=== PATIENT | female | born 2005 | race Caucasian/White ===

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

== ENCOUNTER 2023-07-20 20:03 | Emergency (ER) | payer BC ==
--- OUTSIDE RECORDS SUMMARY | 2023-07-20 20:06 | XMS REPORT | Continuity of Care Document ---
:2005 Author Organization [facility] t Address [address] [address] [place] [address] Care Team Providers Name Role Phone Varun Tobias MD Primary Care Physician Christy Lundberg MA Attending Clinician Unavailable Mamie Ponce MD Attending Clinician CELESTE LOVELL Attending Clinician Unavailable NARINDER MENCHACA Attending Clinician Unavailable DENISHA CLEMENTS Attending Clinician Unavailable Lab, [facility] F[facility] Pob I Attending Clinician Unavailable Jacquelyn Bar Attending Clinician JACQUELYN ANGELES Attending Clinician Unavailable Doctor Unassigned, [facility] Attending Clinician Unavailable Andrew Martin MD Attending Clinician Payers Payer Name Policy Type Policy Number Effective Date Expiration Date S ource Problems Condition Condition Condition Status Onset Resolution Last Treating Co mments Source Name Details Category Date Date Treatment Clinician Date JOHN JOHN 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) 00 Me dical [facility] Allergies, Adverse Reactions, Alerts Allergy Allergy Status Severity Reaction(s) Onset Inactive Treating Comm ents Source Name Type Date Date Clinician Amoxicil Propensi Active Itching 2017-09 Metho di malcom ty to 0-12 st adverse 00:00: Hospita reaction 00 l s to drug Amoxicil Propensi Active Itching 2017-09 Unive rs malcom ty to 0-12 ity of adverse 00:00: [place] reaction 00 Medical s Branch AMOXICIL DRUG Active ITCHING 2017-09 Univers MALCOM INGREDI 0-12 ity of 00:00: [address] Family History Family Member Diagnosis Comments Start Date Stop Date Source Natural mother Hypertension [facility] Natural mother Thrombocytopenia [facility] Paternal grandfather Hypertension [facility] Paternal grandmother Hypertension [facility] Natural sister Cancer [facility] Natural father Gout [facility] Natural father Hypertension [facility] Natural father Sleep apnea [facility] Maternal grandfather Hypertension [facility] Maternal grandmother Hypertension [facility] Social History Social Habit Start Date Stop Date Quantity Comments Source Sexual orientation [facility] Exposure to Yes [facility] of SARS-CoV-2 (event) [facility] Alcohol intake 2021-12-16 2021-12-16 Current [facility] 00:00:00 00:00:00 non-drinker of Hospital alcohol (finding) History of Social 2021-12-16 2021-12-[address] function 00:00:00 00:00:00 Hospital Tobacco use and 2019-01-09 2019-01-09 Smokeless [facility] exposure 00:00:00 00:00:00 tobacco non-user Hospital Sex Assigned At [birth year] [facility] 00:00:00 00:00:00 Hospital Smoking Status Start Date Stop Date Source Never smoked tobacco [facility] Medications Ordered Filled Start Stop Current Ordering Indication Dosage Frequency Signature Comments Components Source Medication Medication Date Date Medication? Clinician (SIG) Name Name acetaminoph Yes 650mg Take 650 M ethodi en ER 3-[address] (Tylenol 14:03: mouth. Hospita Arthritis 02 Take two l Pain) 650 tablets, MG 8 hr twice tablet daily for wrist pain. fexofenadin Yes 60mg Q.5D Take 60 mg Methodi e (ESTELLA) 3-[address] 60 MG 14:01: (two) Hospita tablet 48 times a l day. cholecalcif Yes 125ug QD Take 125 M ethodi yin, 3-[address] vitamin D3, 14:01: mouth Hospi ta (Vitamin 48 daily. l D3) 125 mcg (5,000 unit) tablet fexofenadin Yes Take by Uni vers e HCl 6-10 mouth. ity of (ESTELLA 21:02: [place] ORAL) [address] [place] [address] fexofenadin Yes Take by Uni vers e HCl 6-10 mouth. ity of (ESTELLA 21:02: [place] ORAL) [facility] fexofenadin Yes Take by Uni vers e HCl 6-10 mouth. ity of (ESTELLA 21:02: [place] ORAL) 04 [facility] acetaminoph Yes Take by Un lizett en (TYLENOL 5-17 mouth. ity of ORAL) 18:51: [address] acetaminoph Yes Take by Uni vers en (TYLENOL 5-17 mouth. ity of ORAL) 18:51: [address] acetaminoph Yes Take by Uni vers en (TYLENOL 5-17 mouth. ity of ORAL) 18:51: [address] Procedures Procedure Date / Time Performing Clinician Source Performed MEDICATION CORRESPONDENCE 2020-04-12 05:01:00 Doctor Unassigned, [facility] Plan of Care Planned Activity Planned Date Details Comments Source Future Scheduled 2023-07-12 HEPATITIS B VACCINES Met [facility] Test 16:03:19 (1 of 3 - 3-dose series) [code = HEPATITIS B VACCINES (1 of 3 - 3-dose series)] Future Scheduled 2023-07-12 Screening for [facility] Test 16:03:19 Chlamydia trachomatis (procedure) [code = 690648541] Future Scheduled 2023-07-12 Hepatitis C screening [facility] Test 16:03:19 (procedure) [code = 298997395] Future Scheduled 2023-07-12 COVID-19 VACCINE (3 - [facility] Test 16:03:19 ) [code = COVID-19 VACCINE ( - season)] Future Scheduled 2023-07-12 INFLUENZA VACCINE Method [facility] Test 16:03:19 (#1) [code = INFLUENZA VACCINE (#1)] Encounters Start End Encounter Admission Attending Care Care Encounter Source Date/Time Date/Time Type Type Clinicians Facility Department ID 2023-06-01 2023-06-01 Riley [id number] Method[facility] 00:00:00 00:00:[id number] 3.430.2.7 Hospit a .3.326254 l .8 2023-05-31 2023-05-31 Telephone Rosario, 1.2.840.1 [id number] [facility] 00:00:00 00:00:00 Mamie [id number] 446 3.430.2.7 Hospit a .3.410922 l .8 2022-01-03 2022-01-03 Outpatient ROSARIO, [facility] [id number] [place] 00:00:00 00:00:00 MAMIE [address] 2021-12-28 2021-12-28 Outpatient CELESTE LOVELL [facility] [id number] [place] 00:00:00 00:00:[address] 2021-12-16 2021-12-16 Outpatient CELESTE LOVELL [facility] [id number] [place] 00:00:00 00:00:[address] 2021-12-07 2021-12-07 Outpatient ROSARIO [facility] [id number] [place] 00:00:00 00:00:00 MAMIE [address] 2021-12-06 2021-12-06 Outpatient NIKOLAI, [facility] [id number] [address] [place] 00:00:00 00:00:00 NARINDER [address] 2021-12-01 2021-12-01 Outpatient GANTI, [facility] [id number] [address] [place] 00:00:00 00:00:00 NARINDER [address] 2021-11-26 2021-11-26 Emergency CLEMENTS, [facility] [id number] [address] [place] 00:00:00 00:00:00 DENISHA [address] 2021-11-24 2021-11-24 Outpatient ROSARIO, [facility] [id number] [place] 00:00:00 00:00:00 MAMIE [address] 2021-11-24 2021-11-24 Outpatient RODONI, [facility] [id number] [address] [place] 00:00:00 00:00:00 MAMIE [address] 2021-11-11 2021-11-11 Outpatient RODONI, [facility] [id number] [place] 00:00:00 00:00:00 MAMIE [address] 2021-11-09 2021-11-09 Outpatient NIKOLAI, [facility] [id number] [place] 00:00:00 00:00:00 NARINDER [address] 2021-11-01 2021-11-01 Outpatient NIKOLAI, [facility] [id number] 0[address] [place] 00:00:00 00:00:00 NARINDER 466 [address] 2020-09-10 2020-09-10 Laboratory Lab, Adc Fam Pob I [facility] [id number]. [id number] Univers 15:10:42 15:30:42 Only Jacquelyn Angeles [facility] [id number] ity of [place] 4.2.7.2.686 Sudheer as Professio [phone] [address] Office [facility] 2020-09-10 2020-09-10 Outpatient Ward ANGELES [facility] [id number] Univers 15:00:00 15:00:00 JACQUELYN echols [facility] 2020-04-12 2020-04-12 Orders Doctor SHAMAR [id number] 00:00:00 00:00:00 Only Unassigned, YAKOV 350.1.13.10 [facility] 4.2.7.2.686 [id number] [facility] 2020-04-12 2020-04-12 Orders Doctor SHAMAR [id number] Univers 00:00:00 00:00:00 Only Unassigned, YAKOV [id number] ity of [facility] 4.2.7.2.686 Sudheer as [id number] [address] 2020-04-09 2020-04-09 Telephone Andrew Martin [facility] [id number] 00:00:00 00:00:00 [place] [id number] Pediatric 4.2.7.2.686 Clinic [id number] [facility] 2020-04-09 2020-04-09 Telephone Andrew Martin [facility] [id number] Univers 00:00:00 00:00:00 [place] [id number] it y of [facility] 4.2.7.2.686 [place] [facility] [id number] [facility] [address] Branch Results This patient has no known results.
[2023-07-20 21:50] LABS: Absolute Lymphocytes (CBC) 2.8 K/uL (0.7-4.9); Hematocrit 41.6 % (36.0-45.0); Lymphocytes % 21.3 % (15.3-44.8); MCV 85.8 fL (80-100); MPV 9.1 fL (7.6-11.3); Platelets 254 thou/uL (152-406); RBC Red Blood Cell Count 4.84 M/uL (3.86-4.86)
[2023-07-20] MEDS ORDERED: NA CHLORIDE 0.9% 1,000 ML ONE (22:02)
[2023-07-20] MEDS ORDERED: KETOROLAC 30 MG/ML INJ ONE (22:02)
[2023-07-20] MEDS ORDERED: ONDANSETRON 4 MG/2 ML VIAL ONE (22:02)
[2023-07-20] MEDS ORDERED: FAMOTIDINE 20 MG/2 ML VIAL IV ONE (22:02)
[2023-07-20 22:12] LABS: Albumin 4.2 g/dL (3.4-5.0); Bilirubin Total 0.6 mg/dL (0.2-1.0); Potassium 4.1 mEq/L (3.5-5.1); Protein, Total 7.8 g/dL (6.4-8.2)
[2023-07-20 23:46] LABS: Specific Gravity 1.028 (1.005-1.030)
[2023-07-21 00:07] LABS: Specific Gravity 1.028 (1.005-1.030); Urine Bacteria None Seen /HPF (<20); Urine Bilirubin NEGATIVE (Negative); Urine Blood Negative (Negative); Urine Clarity Clear (Clear); Urine Color Yellow (Yellow); Urine Glucose NEGATIVE (Negative); Urine Mucus Slight /HPF (None Seen); Urine Protein 2+ (Negative); Urine RBC <5 /HPF (None Seen); Urine Urobilinogen 1+ (Normal)
--- NOTE | 2023-07-21 01:13 | ER ---
Nurse's Notes [facility] Name: Carolyn Cuevas Age: 17 yrs Sex: Female : 2005 Arrival Date: 07/20/2023 Time: 20:03 Bed DIS2 Private MD: Diagnosis: Nausea with vomiting, unspecified;Diarrhea, unspecified Presentation: 07/20 21:06 Chief complaint: Patient states: Started feeling sick Sunday morning Sunday I felt vc1 fine then yesterday I started feeling sick again. I went to urgent care and they told me to come here because it could be appendicitis. Coronavirus screen: Vaccine status: Patient reports receiving the 2nd dose of the covid vaccine. Pfizere Client denies travel out of the [place] in the last 14 days. At this time, the client does not indicate any symptoms associated with coronavirus-19. Ebola Screen: Patient negative for fever greater than or equal to 101.5 degrees Fahrenheit, and additional compatible Ebola Virus Disease symptoms Patient denies exposure to infectious person. Patient denies travel to an Ebola-affected area in the 21 days before illness onset. No symptoms or risks identified at this time. Initial Sepsis Screen: Does the patient meet any 2 criteria? No. Patient's initial sepsis screen is negative. Does the patient have a suspected source of infection? No. Patient's initial sepsis screen is negative. Risk Assessment: Do you want to hurt yourself or someone else? Patient reports no desire to harm self or others. Onset of symptoms was July 17, 2023. 21:06 Method Of Arrival: Ambulatory vc1 21:06 Acuity: JACOBY 3 vc1 Triage Assessment: 21:10 General: Appears in no apparent distress. uncomfortable, ill, Behavior is cooperative, vc1 appropriate for age. Pain: Complains of pain in abdomen Pain does not radiate. Pain currently is 8 out of 10 on a pain scale. GI: Reports lower abdominal pain, upper abdominal pain, diarrhea, intolerance of fluids, intolerance of food, nausea, vomiting. 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 - Social history:: Smoking status: Patient denies any tobacco usage or history of. Screenin:57 [facility] ED Fall Risk Assessment (Adult) History of falling in the last 3 months, vc1 including since admission No falls in past 3 months (0 pts) Confusion or Disorientation No (0 pts) Intoxicated or Sedated No (0 pts) Impaired Gait No (0 pts) Mobility Assist Device Used No (0 pt) Altered Elimination No (0 pt) Score/Fall Risk Level 0 - 2 = Low Risk Oriented to surroundings, Maintained a safe environment, Educated pt \T\ family on fall prevention, incl call for assistance when getting out of bed. Abuse screen: Denies threats or abuse. Nutritional screening: No deficits noted. Tuberculosis screening: No symptoms or risk factors identified. Assessment: 07/21 01:50 Reassessment: Patient and/or family updated on plan of care and expected duration. Pain ha1 level reassessed. Patient is alert, oriented x 3, equal unlabored respirations, skin warm/dry/pink. Patient denies pain at this time. Patient states feeling better. Patient states symptoms have improved. Vital Signs: 07/20 21:06 BP 147 / 85; Pulse 87; Resp 18; Temp 98.8; Pulse Ox 99% ; Weight 65.77 kg; Height 5 ft. vc1 3 in. ; Pain 05/20; 23:47 BP 127 / 66; Pulse 99; Resp 22; Temp 98.8(O); Pulse Ox 98% ; kmf 07/21 01:00 BP 122 / 65; Pulse 95; Resp 18 S; Pulse Ox 98% on R/A; ha1 07/20 21:06 Body Mass Index 25.69 (65.77 kg, 160.02 cm) - Percentile 82.2 % vc1 07/20 21:06 Pain Scale: Adult vc1 ED Course: 07/20 20:07 Patient arrived in ED. es 21:08 Triage completed. vc1 21:08 Arm band placed on left wrist. vc1 21:15 Wai Garcia PA is PHCP. cp 21:15 Bryson Mancini is Attending Physician. cp 21:45 Inserted saline lock: 20 gauge in left antecubital area, using aseptic technique. Blood as6 collected. 22:22 Radiology exam delayed due to test not completed at this time. 22:57 Sary Guerrero, RN is Primary Nurse. vc1 23:00 Patient has correct armband on for positive identification. Placed in gown. Bed in low vc1 position. 23:29 Test, Urine Sent. 23:29 Urinalysis w/ reflexes Sent. 07/21 00:16 CT Abd/Pelvis - IV Contrast Only In Process Unspecified. EDMS 01:50 No provider procedures requiring assistance completed. IV discontinued, intact, ha1 bleeding controlled, No redness/swelling at site. Pressure dressing applied. 01:51 Provided Education on: medication administration . ha1 Administered Medications: 07/20 21:54 Drug: NS 0.9% IV 1000 ml IV at 1 bolus Per protocol; 1000 mL bolus Route: IV; Rate: 1 as6 bolus; Site: left antecubital; 21:54 Drug: Famotidine IVP 20 mg IVP once; dilute with 10 mL 0.9% NaCl; give over 2 minutes as6 Route: IVP; Site: left antecubital; 21:54 Drug: TORadol - Ketorolac IVP 15 mg IVP once Route: IVP; Site: left antecubital; as6 21:54 Drug: Ondansetron IVP 4 mg IVP once; over 2 minutes Route: IVP; Site: left antecubital; as6 07/21 01:35 Drug: Dicyclomine PO 20 mg PO once Route: PO; vc1 01:49 Follow up: Response: No adverse reaction ha1 Medication: 07/20 23:00 VIS not applicable for this client. vc1 Outcome: 07/21 01:13 Discharge ordered by MD. cp 01:50 Discharged to home ambulatory, with family, [facility] 01:50 Condition: stable 01:50 Discharge instructions given to patient, family, Instructed on discharge instructions, follow up and referral plans. medication usage, Demonstrated understanding of instructions, follow-up care, medications, Prescriptions given X 2, 01:53 Patient left the ED. [facility] Signatures: Dispatcher [employer] EDMS Veronica Graff Shannon sw Page, Corey, PA PA cp Marsh, Wendy Slawson, Ambrose, RN RN as6 Sary Guerrero RN RN vc1 Effie Martinez RN RN ha1 Ledy Garduno [facility] Corrections: (The following items were deleted from the chart) 07/20 21:10 21:09 PSHx: None; vc1 vc1
--- NOTE | 2023-07-21 01:13 | EDPHYS ---
Physician Documentation [facility] Name: Carolyn Cuevas Age: 17 yrs Sex: Female : 2005 Arrival Date: 07/20/2023 Time: 20:03 Bed DIS2 Private MD: ED Physician Bryson Mancini HPI: 07/20 21:20 This 17 yrs old Female presents to ER via Ambulatory with complaints of Abdominal Pain, cp Vomiting/Diarrhea. 21:20 The patient presents with abdominal pain in the lower abdomen. cp 21:20 Onset: The symptoms/episode began/occurred this past Sunday, symptoms improved cp Sunday but returned yesterday. Seen at urgent care and referred to ED due to concern for appendicitis. Patient reports vomiting and diarrhea. Severity of pain: in the emergency department the pain is unchanged despite home interventions. 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 - Social history:: Smoking status: Patient denies any tobacco usage or history of. ROS: 21:25 Constitutional: Negative for chills, fever, cp 21:25 Eyes: Negative for injury, pain, redness, and discharge, cp 21:25 ENT: Negative for drainage from ear(s), ear pain, sore throat, difficulty swallowing, difficulty handling secretions, 21:25 Cardiovascular: Negative for chest pain, palpitations, 21:25 Respiratory: Negative for cough, shortness of breath, wheezing, 21:25 Abdomen/GI: Positive for abdominal pain, vomiting, diarrhea, of the right lower quadrant and left lower quadrant, Negative for constipation, 21:25 : Negative for urinary symptoms, 21:25 Neuro: Negative for altered mental status, headache, 21:25 All other systems are negative, Exam: 21:30 Head/Face: Normocephalic, atraumatic. cp 21:30 Constitutional: The patient appears in no acute distress, alert, awake, non-toxic, well developed, well nourished, uncomfortable, 21:30 Eyes: Periorbital structures: appear normal, Conjunctiva: normal, no exudate, no cp injection, Sclera: no appreciated abnormality, Lids and lashes: appear normal, bilaterally, 21:30 ENT: External ear(s): are unremarkable, Nose: is normal, Mouth: Lips: moist, Oral mucosa: pink and intact, moist, Posterior pharynx: is normal, airway is patent, no erythema, no exudate, 21:30 Chest/axilla: Inspection: normal, 21:30 Cardiovascular: Rate: normal, Rhythm: regular, 21:30 Respiratory: the patient does not display signs of respiratory distress, Respirations: normal, no use of accessory muscles, no retractions, labored breathing, is not present, Breath sounds: are clear throughout, no decreased breath sounds, no stridor, no wheezing, 21:30 Abdomen/GI: Inspection: abdomen appears normal, Bowel sounds: active, all quadrants, Palpation: soft, in all quadrants, mild abdominal tenderness, in the right lower quadrant, rebound tenderness, is not appreciated, involuntary guarding, is not appreciated, 21:30 Back: pain, is absent, ROM is normal, 21:30 Neuro: Orientation: to person, place \T\ time. Mentation: is normal, Motor: moves all fours, strength is normal, Sensation: is normal, Vital Signs: 21:06 BP 147 / 85; Pulse 87; Resp 18; Temp 98.8; Pulse Ox 99% ; Weight 65.77 kg; Height 5 ft. vc1 3 in. ; Pain 9/10; 23:47 BP 127 / 66; Pulse 99; Resp 22; Temp 98.8(O); Pulse Ox 98% ; f 07/21 01:00 BP 122 / 65; Pulse 95; Resp 18 S; Pulse Ox 98% on R/A; ha1 07/20 21:06 Body Mass Index 25.69 (65.77 kg, 160.02 cm) - Percentile 82.2 % [facility] 07/20 21:06 Pain Scale: Adult [facility] MDM: 07/20 21:15 Patient medically screened. cp 22:00 Differential diagnosis: appendicitis, cholecystitis, Cholelithiasis, gastritis, cp non-specific abd pain, Ovarian Torsion, Pelvic Inflammatory Disease, Ureterolithiasis, urinary tract infection. 07/21 01:12 Data reviewed: vital signs, nurses notes, lab test result(s), radiologic studies, CT cp scan. 01:12 I considered the following discharge prescriptions or medication management in the emergency department Medications were administered in the Emergency Department. See MAR. Counseling: I had a detailed discussion with the patient and/or guardian regarding the historical points, exam findings, and any diagnostic results supporting the discharge/admit diagnosis, lab results, radiology results, to return to the emergency department if symptoms worsen or persist or if there are any questions or concerns that arise at home. Response to treatment: the patient's symptoms have markedly improved after treatment, and as a result, I will discharge patient. Special discussion: Based on the patient's Hx, exam, and Dx evaluation, there is no indication for emergent surgery or inpatient Tx. It is understood by the patient/guardian that if the Sx's persist or worsen they need to return immediately for re-evaluation. 07/20 21:16 Order name: CBC with Diff; Complete Time: 23:32 07/21 00:21 Interpretation: Normal except: WBC 13.00; NEUT A 9.4. 07/20 21:16 Order name: CMP; Complete Time: 23:32 07/20 21:16 Order name: Lipase; Complete Time: 23:32 07/20 21:16 Order name: Test, Urine; Complete Time: 00:21 07/21 00:21 Interpretation: Reviewed. 07/20 21:16 Order name: Urinalysis w/ reflexes; Complete Time: 00:21 07/21 00:21 Interpretation: Normal except: UKET 4+ (Over); UPROT 2+; UUROB 1+. 07/20 21:16 Order name: CT Abd/Pelvis - IV Contrast Only 07/20 21:16 Order name: IV Saline Lock; Complete Time: 21:45 07/20 21:16 Order name: Labs collected and sent; Complete Time: 21:45 07/21 01:08 Order name: PO challenge; Complete Time: 01:49 cp Administered Medications: 07/20 21:54 Drug: NS 0.9% IV 1000 ml IV at 1 bolus Per protocol; 1000 mL bolus Route: IV; Rate: 1 as6 bolus; Site: left antecubital; 21:54 Drug: Famotidine IVP 20 mg IVP once; dilute with 10 mL 0.9% NaCl; give over 2 minutes as6 Route: IVP; Site: left antecubital; 21:54 Drug: TORadol - Ketorolac IVP 15 mg IVP once Route: IVP; Site: left antecubital; as6 21:54 Drug: Ondansetron IVP 4 mg IVP once; over 2 minutes Route: IVP; Site: left antecubital; as6 07/21 01:35 Drug: Dicyclomine PO 20 mg PO once Route: PO; vc1 01:49 Follow up: Response: No adverse reaction ha1 Disposition Summary: 07/21/23 01:13 Discharge Ordered Notes: Location: Home cp Problem: new cp Symptoms: have improved cp Condition: Stable cp Diagnosis - Nausea with vomiting, unspecified cp - Diarrhea, unspecified cp Followup: cp - With: Emergency Department - When: As needed - Reason: Worsening of condition Discharge Instructions: - Discharge Summary Sheet cp - Food Choices to Help Relieve Diarrhea, Adult cp - Diarrhea, Adult cp - Nausea and Vomiting, Adult cp Forms: - Medication Reconciliation Form cp - Thank You Letter cp - Antibiotic Education cp - Prescription Opioid Use cp - Patient Portal Instructions cp - Leadership Thank You Letter cp Prescriptions: - Zofran 4 mg Oral Tablet - take 1 tablet ORAL route every 12 hours As needed; 20 tablet; Refills: 0, cp Product Selection Permitted - dicyclomine 20 mg Oral tablet - take 1 tablet ORAL route 4 times per day; 20 tablet; Refills: 0, Product cp Selection Permitted Signatures: Dispatcher [employer] EDDC Wai Garcia PA PA cp Ambrose Hutton RN RN as6 Sary Guerrero RN RN vc1 Effie Martinez RN ha1 Corrections: (The following items were deleted from the chart) 07/20 21: 21:09 PSHx: None; vc1 vc1 07/21 15:22 07/20 21:20 Constitutional: The patient appears in no acute distress, alert, awake, cp non-toxic, well developed, well nourished, uncomfortable, cp 07/21 15:22 07/20 21:20 Head/Face: Normocephalic, atraumatic. cp cp
[2023-07-21] MEDS ORDERED: DICYCLOMINE HCL 10 MG CAP ONE (01:45)
[2023-07-21 02:29] VITALS: TEMP 98.8
[2023-07-21 02:35] VITALS: O2SAT 98
[2023-07-21 02:40] VITALS: BP 122/65
--- NOTE | 2023-07-21 16:52 | RAD REPORT ---
EXAM DESCRIPTION: CT - Abdomen Pelvis W Contrast - 07/21/2023 6:07 am CLINICAL HISTORY: 17 years Female lower abdomen pain TECHNIQUE: Contiguous axial images obtained through the abdomen and pelvis following intravenous con trast administration. Coronal and sagittal reformatted images provided. This CT exam was performed according to our departmental dose-optimization program, which includes on e or more of the following dose reduction techniques: automated exposure control, adjustment of the m A and/or kV according to patient size, and/or use of iterative reconstruction technique. COMPARISON: No prior exams provided for comparison. FINDINGS: There is no bowel inflammation, obstruction, free intraperitoneal air, or abdominal ascite s. 2.3 cm left ovarian cyst is benign in appearance and does not require follow-up. There is free fluid in the cul-de-sac. Normal uterus and right ovary The lung bases, liver, biliary tree, gallbladder, pancreas, spleen, adrenal glands, kidneys, urinary bladder, and osseous structures are unremarkable. IMPRESSION: Physiologic--appearing left ovarian cyst and free fluid in the cul-de-sac. No acute find ings in the abdomen or pelvis. Electronically signed by: Bonnie Brennan MD 07/21/2023 12:36 AM [employer]ERN[employer] FLOOR SUPERVISOR Due to temporary technical issues with the PACS/Fluency reporting system, reports are being signed by the in house radiologists without review as a courtesy to insure prompt reporting. The interpreting radiologist is fully responsible for the content of the report.
== END 2023-07-21 01:53 | disposition home or self-care (01) ==
LOC: ER 20:03
DX: R11.2 Nausea with vomiting, unspecified (principal); R19.7 Diarrhea, unspecified; R10.30 Lower abdominal pain, unspecified; Z88.0 Allergy status to penicillin
CPT/HCPCS: 85025; 81001; 36415; 81025; 83690; 80053; 74177; 96375; 96374; 99284; Q9967; J2405; J7030

== ENCOUNTER 2023-07-21 14:09 | Emergency (ER) | payer BC ==
--- OUTSIDE RECORDS SUMMARY | 2023-07-21 14:15 | XMS REPORT | Continuity of Care Document ---
:2005 Author Organization [facility] t Address [address] [place] [address] Care Team Providers Name Role Phone Varun Tobias MD Primary Care Physician Christy Lundberg MA Attending Clinician Unavailable Mamie Ponce MD Attending Clinician CELESTE LOVELL Attending Clinician Unavailable NARINDER MENCHACA Attending Clinician Unavailable DENISHA CLEMENTS Attending Clinician Unavailable Lab, Adc Fam Pob I Attending Clinician Unavailable Jacquelyn Bar Attending Clinician JACQUELYN ANGELES Attending Clinician Unavailable Doctor Unassigned, [place] Attending Clinician Unavailable Andrew Martin MD Attending [...] Univers MALCOM INGREDI 0-12 ity of 00:00: [address] Family History Family Member Diagnosis Comments Start Date Stop Date Source Natural mother Hypertension [facility] Natural mother Thrombocytopenia [facility] Paternal grandfather Hypertension [facility] Paternal grandmother Hypertension [facility] Natural sister Cancer [facility] Natural father Gout [facility] Natural father Hypertension [facility] Natural father Sleep apnea [facility] Maternal grandfather Hypertension [facility] Maternal grandmother Hypertension [facility] Social History Social Habit Start Date Stop Date Quantity Comments Source [facility] orientation [facility] Exposure to Yes [facility] of SARS-CoV-2 (event) [facility] Alcohol intake 2021-12-16 2021-12-16 Current [facility] 00:00:00 00:00:00 non-drinker of Hospital alcohol (finding) History of Social 2021-12-16 2021-12-[address] function 00:00:00 00:00:00 Hospital Tobacco use and 2019-01-09 2019-01-09 Smokeless [facility] exposure 00:00:00 00:00:00 tobacco non-user Hospital Sex Assigned At [birth year] [facility] 00:00:00 00:00:00 Hospital Smoking Status Start Date Stop Date Source Never smoked tobacco [facility] Medications Ordered Filled Start Stop Current Ordering Indication Dosage Frequency Signature Comments Components Source Medication Medication Date Date Medication? Clinician (SIG) Name Name acetaminoph Yes 650mg Take 650 M ethodi en ER 3-[address] (Tylenol 14:03: mouth. [facility]osp[facility] Arthritis 02 Take two l Pain) 650 tablets, MG 8 hr twice tablet daily for wrist pain. acetaminoph Yes 650mg Take 650 M ethodi [...] 125 mcg (5,000 unit) tablet fexofenadin Yes 60mg Q.5D Take 60 mg [...] HCl 6-10 mouth. ity of ([place] 21:02: [place] [facility] fexofenadin Yes Take by Uni vers e HCl 6-10 mouth. ity of ([place] 21:02: [place] ORAL) [facility] fexofenadin Yes Take by Uni vers e HCl 6-10 mouth. ity of ([place] 21:02: [place] ORAL) [address] [place] [address] acetaminoph Yes Take by Uni vers en (TYLENOL 5-17 mouth. ity of ORAL) 18:51: [address] acetaminoph Yes Take by Uni vers en (TYLENOL 5-17 mouth. ity of ORAL) 18:51: [address] acetaminoph Yes Take by Uni vers en (TYLENOL 5-17 mouth. ity of ORAL) 18:51: [address] Procedures Procedure Date / Time Performing Clinician Source Performed MEDICATION CORRESPONDENCE 2020-04-12 05:01:00 Doctor Unassigned, [facility] Plan of Care Planned Activity Planned Date Details Comments Source Future Scheduled 2023-07-12 HEPATITIS B VACCINES Met [facility] Test 16:03:19 (1 of 3 - 3-dose series) [code = HEPATITIS B VACCINES (1 of 3 - 3-dose series)] Future Scheduled 2023-07-12 Screening for [facility] Test 16:03:19 Chlamydia trachomatis (procedure) [code = 508095283] Future Scheduled 2023-07-12 Hepatitis C screening [facility] Test 16:03:19 (procedure) [code = 470072180] Future Scheduled 2023-07-12 COVID-19 VACCINE (3 - [facility] Test 16:03:19 ) [code = COVID-19 VACCINE ()] Future Scheduled 2023-07-12 INFLUENZA VACCINE Method [facility] Test 16:03:19 (#1) [code = INFLUENZA VACCINE (#1)] Future Scheduled 2023-07-12 HEPATITIS B VACCINES Met [facility] Test 16:03:19 (1 of 3 - 3-dose series) [code = HEPATITIS B VACCINES (1 of 3 - 3-dose series)] Future Scheduled 2023-07-12 Screening for [facility] Test 16:03:19 Chlamydia trachomatis (procedure) [code = 434592130] Future Scheduled 2023-07-12 Hepatitis C screening [facility] Test 16:03:19 (procedure) [code = 199332064] Future Scheduled 2023-07-12 COVID-19 VACCINE (3 - [facility] Test 16:03:19 ) [code = COVID-19 VACCINE ()] Future Scheduled 2023-07-12 INFLUENZA VACCINE Method [facility] Test 16:03:19 (#1) [code = INFLUENZA VACCINE (#1)] Encounters Start End Encounter Admission Attending Care Care Encounter Source Date/Time Date/Time Type Type Clinicians Facility Department ID 2023-06-01 2023-06-01 Telephone Tamika, 1.2.840.1 [id number] [facility] 00:00:00 00:00:[id number] 3.430.2.7 Hospit a .3.824847 l .8 2023-06-01 2023-06-01 Telephone Tamika, 1.2.840.1 [id number] [facility] 00:00:00 00:00:[address] 3.430.2.7 Hospit a .3.271336 l .8 2023-05-31 2023-05-31 Telephone Rosario, 1.2.840.1 [id number] [facility] 00:00:00 00:00:[id number] 3.430.2.7 Hospit a .3.351690 l .8 2023-05-31 2023-05-31 Telephone Rosario, 1.2.840.1 [id number] [facility] 00:00:00 00:00:[address] 3.430.2.7 Hospit a .3.701456 l .8 2022-01-03 2022-01-03 Outpatient ROSARIO, [facility] [id number] [place] 00:00:00 00:00:00 MAMIE [address] 2021-12-28 2021-12-28 Outpatient CELESTE LOVELL [facility] [id number] [place] 00:00:00 00:00:[address] 2021-12-16 2021-12-16 Outpatient CELESTE LOVELL [facility] [id number] [place] 00:00:00 00:00:[address] 2021-12-07 2021-12-07 Outpatient ROSARIO, [facility] [id number] [place] 00:00:00 00:00:00 MAMIE [address] 2021-12-06 2021-12-06 Outpatient NIKOLAI, [facility] [id number] [place] 00:00:00 00:00:00 NARINDER [address] 2021-12-01 2021-12-01 Outpatient GANTI, [facility] [id number] [place] 00:00:00 00:00:00 NARINDER [address] 2021-11-26 2021-11-26 Emergency CLEMENTS, [facility] [id number] 68 [place] 00:00:00 00:00:00 DENISHA [address] 2021-11-24 2021-11-24 Outpatient ROSARIO, [facility] [id number] [place] 00:00:00 00:00:00 MAMIE [address] 2021-11-24 2021-11-24 Outpatient RODONI, [facility] [id number] [place] 00:00:00 00:00:00 MAMIE [address] 2021-11-11 2021-11-11 Outpatient GOLDENUSAMANI, [facility] [id number] [place] 00:00:00 00:00:00 MAMIE [address] 2021-11-09 2021-11-09 Outpatient NIKOLAI, [facility] [id number] [place] 00:00:00 00:00:00 NARINDER [address] 2021-11-01 2021-11-01 Outpatient NIKOLAI, [facility] [id number] [place] 00:00:00 00:00:00 NARINDER [address] 2020-09-10 2020-09-10 Laboratory Lab, [facility]ob I [facility] 1.2. 840.114 [id number] Univers 15:10:42 15:30:42 Only Jacquelyn Angeles [facility] 350.1.13.10 ity of [place] 4.2.7.2.686 Sudheer as Professmallory [phone] [address] Office [address] 2020-09-10 2020-09-10 Outpatient Ward ANGELES, [facility] [id number] Univers 15:00:00 15:00:00 JACQUELYN cartery [facility] 2020-04-12 2020-04-12 Orders Doctor SHAMAR 1.2.840.114 [id number] 00:00:00 00:00:00 Only Unassigned, YAKOV 350.1.13.10 [place] [facility] 4.2.7.2.686 [id number] 2020-04-12 2020-04-12 Orders Doctor SHAMAR 1.2.840.114 [id number] Univers 00:00:00 00:00:00 Only Unassigned, YAKOV 350.1.13.10 ity of [place] [facility] 4.2.7.2.686 Sudheer as [id number] [facility] [address] 2020-04-09 2020-04-09 Telephone Andrew Martin [facility] 1.2.840.114 [id number] Univers 00:00:00 00:00:00 Josesito 350.1.13.10 it y of Pediatric 4.2.7.2.686 [facility] [phone] [facility] [address] 2020-04-09 2020-04-09 Telephone Andrew Martin [facility] 1.2.840.114 [id number] 00:00:00 00:00:00 Josesito 350.1.13.10 Pediatric 4.2.7.2.686 [facility] [phone] 225 Results This patient has no known results.
[2023-07-21 15:10] LABS: SARS-CoV-2 Antigen Rapid Res Negative (Negative)
--- NOTE | 2023-07-21 15:19 | RAD REPORT ---
EXAM DESCRIPTION: CT - Head Brain Wo Cont - 07/21/2023 2:55 pm CLINICAL HISTORY: DIZZINESS COMPARISON: Abdomen Pelvis W Contrast dated 07/20/2023 TECHNIQUE: Noncontrast head CT images were obtained without IV contrast. Multiplanar reformats were generated and reviewed. All CT scans are performed using dose optimization technique as appropriate and may include automated exposure control or mA/KV adjustment according to patient size. FINDINGS: No intracranial hemorrhage, mass, or edema. No abnormal cerebellar tonsillar descent, for approximately 8 millimeter below the level of the vandana en magnum. Midline structures are otherwise unremarkable. Normal ventricular caliber for age. Olvera-white matter differentiation is preserved, without evidence of acute infarct. No abnormal extra- axial fluid collections. Mastoid air cells and visualized portions of the paranasal sinuses are clear. No acute bony findings. IMPRESSION: No evidence of an acute intracranial process. Sequelae of Chiari 1 malformation.
--- NOTE | 2023-07-21 15:45 | ER ---
Nurse's Notes [facility] Name: Carolyn Cuevas Age: 17 yrs Sex: Female : 2005 Arrival Date: 07/21/2023 Time: 14:09 Bed 19 Private MD: Diagnosis: Adverse effect of other drugs, medicaments and biological substances;Dizziness and giddiness Presentation: 07/21 14:14 Chief complaint: Patient states: Here yesterday for the same abdominal pain. Dizziness ll1 is new. Coronavirus screen: Client denies travel out of the [place] in the last 14 days. At this time, the client does not indicate any symptoms associated with coronavirus-19. Ebola Screen: Patient denies travel to an Ebola-affected area in the 21 days before illness onset. Initial Sepsis Screen: Does the patient meet any 2 criteria? No. Patient's initial sepsis screen is negative. Does the patient have a suspected source of infection? No. Patient's initial sepsis screen is negative. Risk Assessment: Do you want to hurt yourself or someone else? Patient reports no desire to harm self or others. 14:14 Method Of Arrival: Ambulatory [facility] 14:14 Acuity: JACOBY 3 ll1 14:20 Onset of symptoms was July 17, 2023. 1 Triage Assessment: 14:22 General: Appears uncomfortable, Behavior is calm, cooperative, appropriate for age. ll1 Pain: Complains of pain in abdomen. GI: Reports lower abdominal pain, upper abdominal pain, nausea, vomiting. 14:24 Neuro: Reports dizziness. ll1 Historical: - Allergies: 14:14 PENICILLINS; ll1 - PMHx: 14:14 Arthritis; ll1 - PSHx: 14:14 Myringotomy and insertion of tympanic ventilation tube; ll1 - Immunization history:: Adult Immunizations up to date. - Social history:: Smoking status: Patient denies any tobacco usage or history of. Screenin:15 [facility] ED Fall Risk Assessment (Adult) History of falling in the last 3 months, rs5 including since admission No falls in past 3 months (0 pts) Confusion or Disorientation No (0 pts) Intoxicated or Sedated No (0 pts) Impaired Gait No (0 pts) Mobility Assist Device Used No (0 pt) Altered Elimination No (0 pt) Score/Fall Risk Level 0 - 2 = Low Risk Oriented to surroundings, Maintained a safe environment. Abuse screen: Denies threats or abuse. Nutritional screening: No deficits noted. Tuberculosis screening: No symptoms or risk factors identified. Assessment: 14:17 General: Appears in no apparent distress. comfortable, Behavior is calm, cooperative. rs5 Pain: Complains of pain in abdomen generalized Pain does not radiate. Pain currently is 3 out of 10 on a pain scale. Quality of pain is described as aching, Pain began 2-3 days ago. Is continuous. Neuro: Level of Consciousness is awake, alert, obeys commands, Oriented to person, place, time, situation. Cardiovascular: Heart tones S1 S2 present Capillary refill < 3 seconds Patient's skin is warm and dry. Rhythm is regular. 14:17 Respiratory: Airway is patent Respiratory effort is even, unlabored, Respiratory rs5 pattern is regular, symmetrical, Breath sounds are clear bilaterally. GI: Abdomen is flat, non-distended, Bowel sounds present X 4 quads. Abd is soft and non tender X 4 quads. : No signs and/or symptoms were reported regarding the genitourinary system. EENT: No signs and/or symptoms were reported regarding the EENT system. Derm: Skin is intact, Skin is pink, warm \T\ dry. Musculoskeletal: Range of motion: intact in all extremities. 14:47 Reassessment: No changes from previously documented assessment. To CT via wheelchair. ll1 15:02 Reassessment: To bedside for orthostatics, pt tolerated it well, denies dizzyness. rs5 15:45 Reassessment: Patient and/or family updated on plan of care and expected duration. Pain rs5 level reassessed. Patient is alert, oriented x 3, equal unlabored respirations, skin warm/dry/pink. Vital Signs: 14:20 BP 129 / 63; Pulse 70; Resp 16; Temp 98.2; Pulse Ox 100% ; Weight 65.77 kg; Height 5 ll1 ft. 3 in. ; Pain 5/10; 15:00 BP 129 / 75 Supine; Pulse 77; rs5 15:03 BP 115 / 71 Sitting; Pulse 75; rs5 15:05 BP 106 / 76 Standing; Pulse 82; rs5 14:20 Body Mass Index 25.69 (65.77 kg, 160.02 cm) - Percentile 82.2 % ll1 14:20 Pain Scale: Adult ll1 ED Course: 14:11 Patient arrived in ED. kj1 14:14 Arm band placed on. ll1 14:15 Kelsey Degroot PA-C is PHCP. sb4 14:15 Boy Samayoa MD is Attending Physician. sb4 14:15 Triage completed. ll1 14:15 Patient has correct armband on for positive identification. Bed in low position. Call rs5 light in reach. Side rails up X2. 14:43 SARS RAPID Sent. ll1 14:43 Flu Sent. ll1 14:48 Nestor Gamez, RN is Primary Nurse. rs5 14:48 Patient placed in an exam room, on a stretcher. ll1 14:56 CT Head Brain wo Cont In Process Unspecified. EDMS 19:17 No provider procedures requiring assistance completed. Patient did not have IV access rs5 during this emergency room visit. Administered Medications: 15:30 Drug: Promethazine PO 25 mg PO once Route: PO; rs5 16:00 Follow up: Response: No adverse reaction; Nausea is decreased rs5 Medication: 13:00 VIS not applicable for this client. rs5 Outcome: 15:45 Discharge ordered by . sb4 16:06 Patient left the ED. rs5 19:17 Discharged to home ambulatory, with family, rs5 19:17 Condition: stable 19:17 Discharge instructions given to patient, family, Instructed on discharge instructions, follow up and referral plans. Demonstrated understanding of instructions, follow-up care, medications, Prescriptions given X 1, Signatures: Dispatcher [employer] EDIA Yoselin Bellamy kj1 Yinka Ellsworth RN RN ll1 Kelsey Degroot PA-C PA-C sb4 Nestor Gamez, RN RN rs5 Corrections: (The following items were deleted from the chart) 14:21 14:14 Chief complaint: Patient states: Here yesterday for the same. Dizzy with ll1 abdominal pain ll1 14:24 14:22 GI: Reports lower abdominal pain, upper abdominal pain, nausea, vomiting, ll1 ll1
--- NOTE | 2023-07-21 15:45 | EDPHYS ---
Physician Documentation [facility] Name: Carolyn Cuevas Age: 17 yrs Sex: Female : 2005 Arrival Date: 07/21/2023 Time: 14:09 Bed 19 Private MD: ED Physician Boy Samayoa HPI: 07/21 15:50 This 17 yrs old Female presents to ER via Ambulatory with complaints of Dizziness, sb4 Abdominal Pain. 16:03 patient was seen here about 12 hours ago for abdominal pain, had negative blood work, sb4 CT, and urine, and was discharged with prescriptions with dicylomine and zofran. she states when she woke up this afternoon, she was dizzy so she came back to be reevaluated. she has been taking the zofran and dicyclomine, states she is still having abdominal as well. Historical: - Allergies: 14:14 PENICILLINS; ll1 - PMHx: 14:14 Arthritis; ll1 - PSHx: 14:14 Myringotomy and insertion of tympanic ventilation tube; ll1 - Immunization history:: Adult Immunizations up to date. - Social history:: Smoking status: Patient denies any tobacco usage or history of. ROS: 16:03 Constitutional: Negative for fever, chills, and weight loss, sb4 16:03 Abdomen/GI: Positive for abdominal pain, 16:03 Neuro: Positive for dizziness, 16:03 All other systems are negative, Exam: 16:03 Constitutional: This is a well developed, well nourished patient who is awake, alert, sb4 and in no acute distress. Head/Face: Normocephalic, atraumatic. Eyes: Extra-ocular motions intact. Periorbital areas with no swelling, redness, or edema. ENT: Mucous membranes moist. Cardiovascular: Regular rate and rhythm with a normal S1 and S2. Respiratory: Lungs have equal breath sounds bilaterally, clear to auscultation and percussion. No rales, rhonchi or wheezes noted. No increased work of breathing, no retractions or nasal flaring. Abdomen/GI: Soft, non-tender, no distension. Skin: Warm, dry with normal turgor. Normal color with no rashes, no lesions, and no evidence of cellulitis. MS/ Extremity: Pulses equal, no cyanosis. Neurovascular intact. Full, normal range of motion. 16:03 Neuro: Orientation: is normal, appropriate for stated age, to person, place, time \T\ situation. Mentation: is normal, appropriate for stated age, Memory: is normal, Cranial nerves: grossly normal, extraocular movements are intact, Facial palsy and sensory deficits are absent. Nystagmus is absent. Speech is clear and appropriate. Motor: is normal, is grossly normal based on the patient's age, no acute changes, moves all fours, Sensation: is normal, no obvious gross deficits, Gait: is steady, appropriate for age, Vital Signs: 14:20 BP 129 / 63; Pulse 70; Resp 16; Temp 98.2; Pulse Ox 100% ; Weight 65.77 kg; Height 5 ll1 ft. 3 in. ; Pain 5/10; 15:00 BP 129 / 75 Supine; Pulse 77; rs5 15:03 BP 115 / 71 Sitting; Pulse 75; rs5 15:05 BP 106 / 76 Standing; Pulse 82; rs5 14:20 Body Mass Index 25.69 (65.77 kg, 160.02 cm) - Percentile 82.2 % ll1 14:20 Pain Scale: Adult ll1 MDM: 14:15 Patient medically screened. sb4 16:03 Differential diagnosis: cardiac arrhythmia, CVA, generalized weakness, hypovolemia, sb4 idiopathic dizziness, vertigo. Data reviewed: vital signs, nurses notes, lab test result(s), EKG, radiologic studies, and as a result, I will discharge patient. Historians other than the Patient: Parent: mom and dad. Counseling: I had a detailed discussion with the patient and/or guardian regarding the historical points, exam findings, and any diagnostic results supporting the discharge/admit diagnosis, lab results, radiology results, to return to the emergency department if symptoms worsen or persist or if there are any questions or concerns that arise at home. 07/21 14:34 Order name: SARS RAPID; Complete Time: 15: sb4 07/21 14:34 Order name: Flu; Complete Time: 15:11 sb4 07/21 14:30 Order name: CT Head Brain wo Cont; Complete Time: 15:20 sb4 07/21 14:30 Order name: EKG; Complete Time: 14:31 sb4 07/21 14:30 Order name: EKG - Nurse/Tech; Complete Time: 14:43 sb4 07/21 14:30 Order name: Orthostatics; Complete Time: 15:18 sb4 EC:01 Rate is 67 beats/min. Rhythm is irregular, Sinus arrythmia. VT interval is shortened at sb4 108 msec. QRS interval is normal at 76 msec. QT interval is normal. No Q waves. T waves are Normal. No ST changes noted. Clinical impression: Sinus arrythmia and No evidence of ischemia. Interpreted by me. Reviewed by me. Administered Medications: 15:30 Drug: Promethazine PO 25 mg PO once Route: PO; rs5 16:00 Follow up: Response: No adverse reaction; Nausea is decreased rs5 Disposition Summary: 07/21/23 15:45 Discharge Ordered Notes: Location: Home sb4 Problem: new sb4 Symptoms: have improved sb4 Condition: Stable sb4 Diagnosis - Adverse effect of other drugs, medicaments and biological substances sb4 - Dizziness and giddiness sb4 Followup: sb4 - With: Emergency Department - When: As needed - Reason: Trouble breathing, Worsening of condition Discharge Instructions: - Discharge Summary Sheet sb4 - Dizziness sb4 Forms: - Work release form sb4 - Medication Reconciliation Form sb4 - Thank You Letter sb4 - Antibiotic Education sb4 - Prescription Opioid Use sb4 - Patient Portal Instructions sb4 - Leadership Thank You Letter sb4 Prescriptions: - Tramadol 50 mg Oral Tablet - take 1 tablet ORAL route every 8 hours as needed; 12 tablet; Refills: 0, sb4 Product Selection Permitted - promethazine 25 mg Oral tablet - take 1 tablet ORAL route every 6 hours As needed; 15 tablet; Refills: 0, sb4 Product Selection Permitted Addendum: 07/22/2023 16:45 I was immediately available for consultation during this patient's visit. I did not e c2 personally see the patient or guide the patient's care. . Signatures: Dispatcher [employer] Yinka Mayorga RN RN ll1 Kelsey Degroot PA-C PA-C sb4 Nestor Gamez RN RN rs5 Boy Samayoa MD MD ec2
[2023-07-21] MEDS ORDERED: PROMETHAZINE 25 MG TABLET ONE (15:50)
[2023-07-21 16:26] VITALS: TEMP 98.2; O2SAT 100
[2023-07-21 16:29] VITALS: BP 106/76
--- NOTE | 2023-07-25 17:36 | EKG ---
Test Date: 2023-07-21 Test Time: 14:46:13 [employer] Clerk: ELIZABETH MEASUREMENT RESULTS: Intervals: Rate: 67 RI: 108 QRSD: 76 QT: 388 QTc: 409 [place]: P: 47 RI: 108 QRS: 70 T: 30 INTERPRETIVE STATEMENTS: Sinus rhythm with sinus arrhythmia with short RI Otherwise normal ECG No previous ECG available for comparison Electronically Signed On 07-25-23 17:26:10 GAMING CASHIER by Darrell Mercedes
== END 2023-07-21 16:06 | disposition home or self-care (01) ==
LOC: ER 14:09
DX: R42 Dizziness and giddiness (principal); T50.995A Adverse effect of other drugs, medicaments and biological substances, initial encounter; Z11.52 Encounter for screening for COVID-19; Z88.0 Allergy status to penicillin
CPT/HCPCS: 93005; 36415; 87804 ×2; 70450; 99284; 87811; Q0169